=== PATIENT | male | born 2000 | race Caucasian/White ===

== ENCOUNTER 2019-07-04 18:40 | Inpatient (IN) ==
[2019-07-04] MEDS ORDERED: DiphenhydrAMINE HCL 50 MG/ML VIAL IV PRN (19:38)
[2019-07-04] MEDS ORDERED: HALOPERIDOL LACTATE 5 MG/ML 1 ML VIAL IM PRN (19:38)
[2019-07-04 19:41] LABS: Appearance Urine Clear (Clear); Bilirubin Urine Negative (Negative); Blood Urine Negative (Negative); Color Urine Dark Yellow; Glucose Urine UA Negative (Negative); Leukocyte Esterase Urine Negative (Negative); Nitrite Urine Negative (Negative); Protein Urine Negative (Negative); Specific Gravity Urine 1.027 (1.000-1.030); Urobilinogen Urine Negative (Negative)
[2019-07-04 19:45] LABS: Ketones Urine 3+ (Negative)
[2019-07-04 19:47] LABS: Basophils # (auto) 0.02 K/uL (0-0.2); Basophils % (auto) 0.2 %; Eosinophils # (auto) 0.08 K/uL (0-0.5); Eosinophils % (auto) 0.9 %; Hematocrit (blood only) 49.4 % (42-52); Hemoglobin 17.4 g/dL (14.0-18.0); Immature Granulocytes # (auto) 0.02 K/uL (0.00-0.02); Immature Granulocytes % (auto) 0.2 %; Lymphocytes # (auto) 1.86 K/uL (1.2-3.4); Lymphocytes % (auto) 21.5 %; Mean Corpuscular Hemoglobin 31.2 pg (25-34); Mean Corpuscular Hgb Conc 35.2 g/dL (32-36); Mean Corpuscular Volume 88.7 fL (80-100); Mean Platelet Volume 9.9 fL (7.4-10.4); Monocytes # (auto) 0.79 K/uL (0.11-0.59); Monocytes % (auto) 9.1 %; Neutrophils # (auto) 5.89 K/uL (1.4-6.5); Neutrophils % (auto) 68.1 %; Platelet Count 248 K/uL (130-400); RDW Coefficient of Variation 13.4 % (11.5-14.5); RDW Standard Deviation 43.7 fL (36.4-46.3); Red Blood Count 5.57 M/uL (4.7-6.1); White Blood Count 8.66 K/uL (4.8-10.8)
[2019-07-04 20:03] LABS: Albumin Level 4.8 gm/dl (3.4-5.0); BUN Creatinine Ratio 11.3 (10-20); Calcium 9.9 mg/dl (8.5-10.1); Creatinine Clr Calc Pharmacy 136.2 ml/min; Est GFR (Non-African American) 100.1; Potassium 3.5 mmol/L (3.5-5.1)
[2019-07-04 20:13] LABS: Albumin Globulin Ratio 1.2 (0.9-2); Bilirubin,Total 0.7 mg/dl (0.2-1); Thyroid Stimulating Hormone 0.718 uIu/ml (0.300-4.500); Total Protein 8.8 gm/dl (6.4-8.2)
[2019-07-04 20:16] LABS: Amphetamines+Metham, Urine Neg (Neg); Barbiturates, Urine Neg (Neg); Benzodiazepine, Urine Neg (Neg); Cocaine, Urine Neg (Neg); MDMA (Ecstacy), Urine Neg (Neg); Methadone, Urine Neg (Neg); Opiate, Urine Neg (Neg); Phencyclidine, Urine Neg (Neg)
[2019-07-04 20:18] LABS: Acetaminophen < 2 ug/ml (10-30); Salicylate < 1.7 mg/dl (2.8-20)
--- NOTE | 2019-07-04 22:50 | Emergency Department Note ---
Entered by Iva Dickerson acting as a scribe for Armando Neal MD History of Present Illness General Chief complaint: Mental Health Evaluation Stated complaint: MENTAL HEALTH EVAL Time Seen by Provider: 07/04/19 19:04 Source: patient History of Present Illness Onset (ago): year(s) (ongoing, worse in the last week ) Location: head (SI with multiple plans (not disclosed)) Severity: similar to prior episodes (SI since high school, worsening) Pain Consistency: + constant Relieved By: + none Associated symptoms: + loss of appetite (last full meal was 1 day ago, declines PO at this time ), + nausea/vomiting (last episode this morning) and + other (irregular sleeping patterns "sleeping too much or too little", abdominal pain) The patient is a 18 year old white male with a history of SI, depression, and anxiety who presents to the Emergency Room for a mental health evaluation. The patient states that he has been experiencing SI since he was in high school. He explains that he is "sick of dealing with everything" and that some days are better than others, however he admits he had a rough week. He reports that "no matter what he does, it is not decent enough" and that he does not believe things will get better. He presents to the ED for SI with multiple plans which he does not disclose. The patient states that he does not have access to guns but he does have a knife collection. However, he states "I am not crazy enough to use them". The patient admits that he tried to see a psychiatrist but was told that there is a 3 month wait period and that his insurance does not cover this type of help. He takes Lexapro daily with no relief. He is a sophomore at [employer] and is originally from [place], [place]. He does not follow with a counseling service back home. The patient also lives in a fraternity house at [facility] where he states that he feels safe. As far as drug use, he admits to recent LSD and marijuana use. He also smokes occasionally and drinks ETOH 1x/week. Additionally, he includes that his sleeping patterns are irregular "either sleeping too little or too much". The patient also adds that he has been experiencing loss of appetite and that his last full meal was 1 day ago. He does not wish to have any PO at this time. He states that he experienced recent nausea and vomiting with his last episode occurring this morning. The patient also reports recent abdominal pain. Of note, he states that school is the "only thing" going well for him. He is willing to do inpatient therapy and offers no further concerns at this time. Home Medications Home Medications Medication Instructions Recorded Confirmed Type escitalopram oxalate 20 mg PO QAM 03/23/19 07/04/19 History naproxen sodium [Aleve] 220 mg PO Q8H PRN 03/23/19 07/04/19 History Allergies Allergy/AdvReac Type Severity Reaction Status Date / Time amoxicillin Allergy Severe Hives Verified 07/04/19 19:52 Past Med/Surg History Medical History Anxiety Depression Suicidal ideations Surgical History No pertinent past surgical history Social History Preferred Language: Nauruan Communication Ability: Effective Rope Walker Required: No Beliefs That Will Affect Care: None ("I gave up on that") Feels Safe at Home: Yes Smoking Status: Current some day smoker Hx Alcohol Use: Yes Alcohol Intake Frequency: Weekly Hx Substance Use: Yes substance use type: marijuana and other Substance Use Type Other:: LSD Review of Systems See HPI for pertinent positives & negatives. and A total of 10 systems reviewed and were otherwise negative Physical Exam Vital Signs Vital Signs - 24 hr 07/04/19 19:00 07/05/19 00:09 Temperature 37.2 C Temperature Source Oral Pulse Rate 78 Pulse Rate [Finger] 89 Respiratory Rate 18 18 Respiratory Effort / Characteristics Non-Labored Respiratory Depth Normal Blood Pressure 153/89 H Blood Pressure [Right Arm] 115/64 Blood Pressure Mean 110 Blood Pressure Mean [Right Arm] 81 Blood Pressure Position [Right Arm] Sitting Pulse Oximetry 97 99 Oxygen Delivery Method Room Air Room Air Sepsis Recent Fever Within 48 Hours No Sepsis New/Unexplained Change in Mental Status No Sepsis Action Taken by Nursing No Action Required GENERAL: Depressed mood, well nourished, NAD, non-toxic. EYE EXAM: Normal conjunctiva. PERRL, no anisocoria and EOM's grossly intact w/o pain. OROPHARYNX: Moist mucus membranes. Grossly normal dentition. NECK: Supple, no nuchal rigidity, no adenopathy, non-tender. no signs of meningismus. LUNGS: Clear to auscultation. Normal chest wall mechanics. HEART: NSR, no MRG. ABDOMEN: Abdomen soft, non-tender, normo-active bowel sounds, no masses, no rebound or guarding. BACK: No CVA TTP. SKIN: No rashes and no bruising. UPPER EXTREMITIES: Upper extremities are grossly normal. LOWER EXTREMITIES: No pitting edema. No calf pain. NEURO EXAM: A&O x3, cranial nerves II-XII grossly intact, normal speech, moves all 4 extremities on command w/o issue. PSYCH: Depressed mood, flat affect, positive SI, no HI or AVH. Course Course 1913: Past medical records reviewed. The patient was evaluated in room A06. A complete history and physical exam was performed. 2324: I checked on the patient and updated him. 0046: The patient was admitted as an inpatient to [facility]. The patient verbally expressed understanding and agreement of the treatment plan. The patient will be evaluated for further treatment. Administered Medications Escitalopram Oxalate (Lexapro Tab) [facility] [place] Stop: 08/04/19 08:59 Last Admin: 07/05/19 08:59 Dose: 20 mg Documented by: [id number] Medical Decision Making Differential Diagnosis Differential diagnoses considered include mood disorder, infection, hypoglycemia, electrolyte abnormalities, cardiac sources, intracerebral event, toxicologic, neurologic, as well as others. Medical Records Attestation: I reviewed the patient's medical records. Home Medications Current Medication List: was personally reviewed by me Laboratory Data Attestation: I reviewed the patient's lab results. Result diagrams: 07/04/19 19:36 07/04/19 19:36 Lab Results 07/04/19 07/04/19 07/04/19 Range/Units 19:10 19:10 19:36 WBC 8.66 (4.8-10.8) K/uL RBC 5.57 (4.7-6.1) M/uL Hgb 17.4 (14.0-18.0) g/dL Hct 49.4 (42-52) % MCV 88.7 (80-100) fL MCH 31.2 (25-34) pg MCHC 35.2 (32-36) g/dL RDW Std Deviation 43.7 (36.4-46.3) fL RDW Coeff of Perla 13.4 (11.5-14.5) % Plt Count 248 (130-400) K/uL MPV 9.9 (7.4-10.4) fL Immature Gran % (Auto) 0.2 % Neut % (Auto) 68.1 % Lymph % (Auto) 21.5 % [place] % (Auto) 9.1 % Eos % (Auto) 0.9 % Baso % (Auto) 0.2 % Immature Gran # (Auto) 0.02 (0.00-0.02) K/uL Neut # (Auto) 5.89 (1.4-6.5) K/uL Lymph # (Auto) 1.86 (1.2-3.4) K/uL [place] # (Auto) 0.79 H (0.11-0.59) K/uL Eos # (Auto) 0.08 (0-0.5) K/uL Baso # (Auto) 0.02 (0-0.2) K/uL Sodium (136-145) mmol/L Potassium (3.5-5.1) mmol/L Chloride (98-107) mmol/L Carbon Dioxide (21-32) mmol/L Anion Gap (3-11) BUN (7-18) mg/dl Creatinine (0.6-1.4) mg/dl Est Cr Clr Drug Dosing ml/min Est GFR ( Amer) Est GFR (Non-Af Amer) BUN/Creatinine Ratio (10-20) Glucose (70-99) mg/dl Calcium (8.5-10.1) mg/dl Total Bilirubin (0.2-1) mg/dl AST (15-37) U/L ALT (12-78) U/L Alkaline Phosphatase (45-117) U/L Total Protein (6.4-8.2) gm/dl Albumin (3.4-5.0) gm/dl Globulin (2.5-4.0) gm/dl Albumin/Globulin Ratio (0.9-2) TSH (0.300-4.500) uIu/ml Urine Color Dark Yellow Urine Appearance Clear (Clear) Urine pH 5.0 (4.5-7.5) Ur Specific [place] 1.027 (1.000-1.030) Urine Protein Negative (Negative) Urine Glucose (UA) Negative (Negative) Urine Ketones 3+ H (Negative) Urine Blood Negative (Negative) Urine Nitrite Negative (Negative) Urine Bilirubin Negative (Negative) Urine Urobilinogen Negative (Negative) Ur Leukocyte Esterase Negative (Negative) Salicylates (2.8-20) mg/dl Urine Opiates Screen Neg (Neg) Ur Methadone, Qual Neg (Neg) Acetaminophen (10-30) ug/ml Urine Barbiturates Neg (Neg) Ur Phencyclidine (PCP) Neg (Neg) U Amphetamin/Meth Scrn Neg (Neg) MDMA (Ecstasy) Screen Neg (Neg) U Benzodiazepines Scrn Neg (Neg) Ur Cocaine Metabolite Neg (Neg) U Marijuana (THC) Screen Pos H (Neg) Ethyl Alcohol mg/dL (0-3) mg/dl 07/04/19 07/04/19 07/04/19 Range/Units 19:36 19:36 19:36 WBC (4.8-10.8) K/uL RBC (4.7-6.1) M/uL Hgb (14.0-18.0) g/dL Hct (42-52) % MCV (80-100) fL MCH (25-34) pg MCHC (32-36) g/dL RDW Std Deviation (36.4-46.3) fL RDW Coeff of Perla (11.5-14.5) % Plt Count (130-400) K/uL MPV (7.4-10.4) fL Immature Gran % (Auto) % Neut % (Auto) % Lymph % (Auto) % [place] % (Auto) % Eos % (Auto) % Baso % (Auto) % Immature Gran # (Auto) (0.00-0.02) K/uL Neut # (Auto) (1.4-6.5) K/uL Lymph # (Auto) (1.2-3.4) K/uL [place] # (Auto) (0.11-0.59) K/uL Eos # (Auto) (0-0.5) K/uL Baso # (Auto) (0-0.2) K/uL Sodium 136 (136-145) mmol/L Potassium 3.5 (3.5-5.1) mmol/L Chloride 103 (98-107) mmol/L Carbon Dioxide 25 (21-32) mmol/L Anion Gap 8.0 (3-11) BUN 12 (7-18) mg/dl Creatinine 1.07 (0.6-1.4) mg/dl Est Cr Clr Drug Dosing 136.2 ml/min Est GFR ( Amer) 116.0 Est GFR (Non-Af Amer) 100.1 BUN/Creatinine Ratio 11.3 (10-20) Glucose 97 (70-99) mg/dl Calcium 9.9 (8.5-10.1) mg/dl Total Bilirubin 0.7 (0.2-1) mg/dl AST 14 L (15-37) U/L ALT 18 (12-78) U/L Alkaline Phosphatase 65 (45-117) U/L Total Protein 8.8 H (6.4-8.2) gm/dl Albumin 4.8 (3.4-5.0) gm/dl Globulin 4.0 (2.5-4.0) gm/dl Albumin/Globulin Ratio 1.2 (0.9-2) TSH 0.718 (0.300-4.500) uIu/ml Urine Color Urine Appearance (Clear) Urine pH (4.5-7.5) Ur Specific [place] (1.000-1.030) Urine Protein (Negative) Urine Glucose (UA) (Negative) Urine Ketones (Negative) Urine Blood (Negative) Urine Nitrite (Negative) Urine Bilirubin (Negative) Urine Urobilinogen (Negative) Ur Leukocyte Esterase (Negative) Salicylates < 1.7 L (2.8-20) mg/dl Urine Opiates Screen (Neg) Ur Methadone, Qual (Neg) Acetaminophen < 2 L (10-30) ug/ml Urine Barbiturates (Neg) Ur Phencyclidine (PCP) (Neg) U Amphetamin/Meth Scrn (Neg) MDMA (Ecstasy) Screen (Neg) U Benzodiazepines Scrn (Neg) Ur Cocaine Metabolite (Neg) U Marijuana (THC) Screen (Neg) Ethyl Alcohol mg/dL < 3.0 (0-3) mg/dl Blood Pressure Blood Pressure Findings: Low blood pressure Blood Pressure Disposition: Referred to patients primary care provider MDM Narrative The patient is a 18 year old white male with a history of SI, depression, and anxiety who presents to the Emergency Room for a mental health evaluation Patient was seen and evaluated the bedside. The patient did present with concern for suicidal ideation and plan. The patient denies any AVH or HI. Patient states school is been going well but outside of that he has been having issues. Patient was seen and evaluated the psych briefcase sewer after being medically cleared. Patient was subsequently admitted to [facility]. Impression & Plan Depression with suicidal ideation, Drug use Discharge Plan Visit Data *Final* Discharge Date/Time: 07/05/19 00:54 Chief Complaint: Mental Health Evaluation Stated Complaint: MENTAL HEALTH EVAL ED Provider: Armando Neal Discharge Problem: Depression with suicidal ideation, Drug use Patient Disposition: Admitted As Inpatient Discharge Instructions Interventions: ED Discharge Assessment Last Done: 07/05/19 00:54 The scribe's documentation has been prepared under my direction and personally reviewed by me in its entirety. I confirm that the note above accurately reflects all work, treatment, procedures, and medical decision making performed by me.
[2019-07-05] MEDS ORDERED: ALUMINUM/MAGNESIUM SUSP 30 ML UDC PO PRN (01:53)
[2019-07-05] MEDS ORDERED: ACETAMINOPHEN 325 MG TAB PO PRN (01:53)
[2019-07-05] MEDS ORDERED: BISMUTH SUBSALICYLATE PER ML OMNICELL CHARGE PO PRN (01:53)
[2019-07-05] MEDS ORDERED: SODIUM CHLORIDE 0.65% NA SOLN 45 ML (OCEAN) PRN (01:53)
[2019-07-05] MEDS ORDERED: MAGNESIUM HYDROXIDE SUSP 30 ML UDC PO PRN (01:53)
--- NOTE | 2019-07-05 08:46 | History & Physical ---
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 [place] Urine Protein Urine Glucose (UA) Urine Ketones Urine Blood Urine Nitrite Urine Bilirubin Urine Urobilinogen Ur Leukocyte Esterase Salicylates < 1.7 L Urine Opiates Screen Ur Methadone, Qual Acetaminophen < 2 L Urine Barbiturates Ur Phencyclidine (PCP) U Amphetamin/Meth Scrn MDMA (Ecstasy) Screen U Benzodiazepines Scrn Ur Cocaine Metabolite U Marijuana (THC) Screen U Marijuana THC Carboxy Drug Screen Comment Ethyl Alcohol mg/dL 07/04/19 19:36 WBC RBC Hgb Hct MCV MCH MCHC RDW Std Deviation RDW Coeff of Perla Plt Count MPV Immature Gran % (Auto) Neut % (Auto) Lymph % (Auto) [place] % (Auto) Eos % (Auto) Baso % (Auto) Immature Gran # (Auto) Neut # (Auto) Lymph # (Auto) [place] # (Auto) Eos # (Auto) Baso # (Auto) Sodium Potassium Chloride Carbon Dioxide Anion Gap BUN Creatinine Est Cr Clr Drug Dosing Est GFR ( Amer) Est GFR (Non-Af Amer) BUN/Creatinine Ratio Glucose Calcium Total Bilirubin AST ALT Alkaline Phosphatase Total Protein Albumin Globulin Albumin/Globulin Ratio TSH Urine Color Urine Appearance Urine pH Ur Specific [place] Urine Protein Urine Glucose (UA) Urine Ketones Urine Blood Urine Nitrite Urine Bilirubin Urine Urobilinogen Ur Leukocyte Esterase Salicylates Urine Opiates Screen Ur Methadone, Qual Acetaminophen Urine Barbiturates Ur Phencyclidine (PCP) U Amphetamin/Meth Scrn MDMA (Ecstasy) Screen U Benzodiazepines Scrn Ur Cocaine Metabolite U Marijuana (THC) Screen U Marijuana THC Carboxy Drug Screen Comment Ethyl Alcohol mg/dL < 3.0 Current Inpatient Medications Current Inpatient Medications: Current Inpatient Medications Acetaminophen (Tylenol) 650 mg PO Q4H PRN PRN Reason: Headache or Minor Fever Stop: 08/04/19 01:52 Al Hydrox/Mg Hydrox/Simethicone (Maalox) 30 ml PO Q4H PRN PRN Reason: GI Upset Stop: 08/04/19 01:52 Bismuth Subsalicylate (Kaopectate) 15 ml PO PRN PRN PRN Reason: Loose Stool Stop: 08/04/19 01:52 Escitalopram Oxalate (Lexapro Tab) 20 mg PO QAM [facility] Stop: 08/04/19 08:59 Hydroxyzine HCl (Vistaril) 50 mg PO HSZ PRN PRN Reason: Insomnia Stop: 08/04/19 01:52 Hydroxyzine HCl (Vistaril) 25 mg PO Q4H PRN PRN Reason: Anxiety Stop: 08/04/19 01:52 Magnesium Hydroxide (Milk Of Magnesia) 30 ml PO DAILY PRN PRN Reason: Constipation Stop: 08/04/19 01:52 Sodium Chloride ([place] Nasal) 1 - 2 sprays NA PRN PRN PRN Reason: Nasal Dryness/Congestion Stop: 08/04/19 01:52
[2019-07-05] MEDS ORDERED: ESCITALOPRAM OXALATE 20 MG TAB PO SCH (09:00)
[2019-07-06] MEDS ORDERED: ESCITALOPRAM OXALATE 10 MG TAB PO SCH (09:00)
[2019-07-06] MEDS ORDERED: SERTRALINE HCL 50 MG TABLET PO SCH (09:00)
--- NOTE | 2019-07-06 13:14 | Psychiatric Progress Note ---
Date of Service July 06, 2019 Impression / Recommendations Impression 18-year-old male admitted voluntarily for inpatient psychiatric treatment on 07/05/2019 after being referred to the ED by [facility] for a mental health evaluation. No available records from [facility] to review at this time, they have been requested. Pt states he began a search for outpatient therapy, but between long wait lists and insurance coverage concerns he was not able to be seen at [facility] where he had requested care. Pt states he has chronic SI, and was feeling "miserable" so decided to get help at [facility]. [facility] referred to the ED for further evaluation and inpatient psychiatric treatment was recommended. Pt verbalize willingness for inpatient treatment, though admits he is now angry and frustrated as he has yet to get help (this being only hours after his admission). He does demonstrate distorted thinking and emotional reactivity suggestive of possible underlying personality disorder (specifically borderline personality disorder traits, r/o possible narcissistic and antisocial traits), though he is not presently in a state to be able to productively review this criteria further. Will use working diagnoses of major depressive disorder and generalized anxiety disorder while attempting to gather collateral information from parents about patient's history of symptoms. Pt was agreeable with cross- taper from escitalopram to sertraline after reviewing risks, benefits, and potential side effects. Aside from these medication adjustments, patient will be encouraged to participate in group and recreational programming. Staff will assist patient in development of healthy and effective coping strategies. Family meeting with parents scheduled for this afternoon to discuss outpatient stressors, and review safety and discharge planning. Pt will require referrals for outpatient therapy and psychiatric medication management prior to discharge. Pt continues to verbalize suicidal ideation and poor coping skills. He remains at high risk of suicide if he is discharged prematurely, therefore inpatient psychiatric treatment remains medically necessary. (1) Suicidal ideations: 07/05 - Admitted to a locked inpatient behavioral health unit, on q15 minute safety checks - Encourage medication initiation/adjustments as indicated - Encourage participation in group and recreational therapies - Gather collateral information from outpatient providers - Suggest family meeting to involve outpatient supports in safety planning - Arrange appropriate aftercare 07/06 - Pt does endorse ongoing SI, stating he continues "this would be a lot easier if I didn't have to go though it" - admitting that these thoughts lead to specific thoughts to end his life - Family meeting today to discuss safety and discharge planning (2) Depression: 07/05 - Will use working diagnosis of major depressive disorder. Differential includes: dysthymic disorder, adjustment disorder, cannabis-induced mood disord er, bipolar disorder, and underlying personality disorder. - Pt agreeable with cross-taper from escitalopram to sertraline - as he has felt escitalopram to be less effective over the past several months. Risks, benefits, and potential side effects of the medication change were discussed. Pt verbalized understanding and is agreeable with initiation of sertraline. Will provide 10mg of escitalopram and 50mg of sertraline for tomorrow morning - as he has already received 20mg of escitalopram this morning. - Encourage attendance of group and recreational programming in order to develop healthy and effective coping strategies - Refer for outpatient therapy and psychiatric medication management - Family meeting with parents to discuss safety and discharge planning 07/06 - Discontinue escitalopram and titrate sertraline to 100mg tomorrow - patient agreeable with plan and is denying side effects - Continue to encourage group and recreational programming - Family meeting with parents is scheduled for this afternoon - Continue referrals for outpatient psychiatric treatment (3) Anxiety: 07/05 - Symptoms of anxiety seem to be consistent with a diagnosis of generalized anxiety disorder, with reported panic attacks - Cross-taper from escitalopram to sertraline as discussed above - Hydroxyzine available prn for acute anxiety - Encourage development of healthy and effective coping strategies in group therapy 07/06 - Switching SSRIs as above - will d/c escitalopram and titrate sertraline to 100mg for tomorrow - Continue prn hydroxyzine - Pt has been participating more openly in group programming (4) Personality disorder: 07/05 - Rule out underlying personality disorder. Pt does demonstrate characteristics of borderline personality disorder (affective instability, inappropriate/intense anger, chronic SI/emptiness, regular suspiciousness of others, and instability within relationships). Evaluate further for possible narcissistic and antisocial traits as well. Family history of chaos with interpersonal relationships, sister with reported borderline personality disorder. - Encourage processing of these thoughts and emotions while maintaining appropriate boundaries - Recommending consistent outpatient CBT, ideally ability to explore DBT as well (5) Cannabis abuse: -Brief intervention was offered and accepted Intervention was greater than 5 min in length. Brief interventions include: 1. Assess Readiness to Quit, 2. Advise: Help Patient to Reduce or Abstain from Alcohol and other abusable substances, 3. Agree: Set Specific, Feasible Goals, 4. Assist: Anticipate barriers, Problem- Solving Solutions. Social work to 5. Arrange: Referrals to appropriate treatment. Summary of intervention: The patient is in precontemplation stage with regards to transtheoretical model of change. The patient is advised to decrease alcohol consumption and substance use due to depressant and mood altering effects and risk of interactions with prescription medications. The patient was advised of recommendations for abstinence from alcohol and other abusable substances and to attend substance abuse treatment at discharge, and will be provided with recovery materials to continue to education self on how to cope with their cond ition without drinking and marijuana use. Risk Factors Assessment Male: Yes : Yes Do You Have Access To A Gun?: No Health Problems: No Mental Health Diagnoses: Yes Substance Use Disorders: Yes Previous Attempt: No Previous Psychiatric Hospitalization: No Hopelessness: Yes Protective Factors Assessment Adventism Beliefs: No : No Responsible for Young Children: No Employed: No Interval History Identifying Information JOSE SOLIS is a 18-year-old male who reported history of anxiety and depression. He reported a failed attempt to secure outpatient psychiatric treatment and therefore presented to [facility] with depressed mood, increased anxiety, and SI with numerous plans. Pt was referred to the ED for mental health evaluation and was admitted on 07/05/19 00:25 on a 201 voluntary commitment. Chief Complaint "I am definitely not looking forward to this meeting with my parents." Review of Systems Notes Constitutional: reports improved sleep last evening Cardiovascular: denied Respiratory: denied Gastrointestinal: denied Neurological: reports mild clouding of thought (states he experienced this when starting escitalopram as well) Psychiatric: denies symptoms other than stated above Total of at least 10 systems reviewed, pertinent positives as above and in HPI. Sleep Information Total Hours of Sleep: 5.75 Sleep Comments: pt given vistaril x2 per rn. pt on q-15 minute checks Meal Information Percent Meal Consumed - Breakfast: 100 Percent Meal Consumed - Lunch: 75 Percent Meal Consumed - Dinner: 90 Subjective Subjective Patient was seen & assessed and interval progress reviewed with nursing and social work. Staff reports the patient continues to verbalize suicidal ideation. He had limited group attendance throughout the day yesterday. He is scheduled for a family meeting with his parents this afternoon. Patient was seen today to assess progress since admission. He does admit that he is "not looking forward to this family meeting with my parents." Despite verbalizing his apprehension, he demonstrates that he has taken steps to prepare for this meeting. He shows this provider a journal he has been keeping, was pages specifically related to thoughts he wants to share with his parents regarding their family dynamic. Some of the patient's points are related to his struggles personally with his mental health, though some other bullet points are related to how they as a family approach conflict between them. Patient admits that he feels comfortable sharing this "they can certainly read it, if they even want to." Patient states that he has been doing some other journaling as well as it relates to various thoughts he has had during his treatment. Patient actually shares with this provider that he used to be rather interested in poetry, and his recent journaling has been inspiring him to return to this. We discussed that there are numerous coping strategies available to individual; however, he will simply need to find which specific ones are beneficial for him. Patient does indicate that he continues to experience suicidal ideation. He states specifically that he is having thoughts of "it would be a lot easier if I did not have to go through this." Patient was asked what thoughts come after the statements, and he responds by saying "the thoughts about being ." Patient verbalizes he is agreeable with continued medication adjustments to discontinue escitalopram and titrate sertraline to 100 mg starting tomorrow morning. He remains agreeable with referrals for outpatient therapy and psychiatric med ication management. He states that he has been feeling more so that group programming and individual counseling sessions have been having some benefit for him. Patient continues to verbalize that his biggest fear is "having gone through all this, and still not feeling better." Patient does engage in appropriate and insightful conversation as we discussed consideration for diagnoses and specific treatment be contributing to symptoms. We reviewed that the numerous factors that contribute to these symptoms (stressors, upbringing, environmental experiences, neurotransmitter functioning, and the influence of various personality types). Patient denies other needs or concerns at this time, but admits he is more hopeful that there might be some benefit to his psychiatric hospitalization after all. Physical Exam Psychiatric Orientation: alert, oriented x 3 and cooperative (Significantly more pleasant d uring today's interaction) Apperance: appropriately dressed, appropriately groomed and appeared stated age Eye Contact: good eye contact Motor Behavior: steady gait and station and no abnormal motor movements Speech: normal rate/rhythm/volume of speech Affect: + blunted affect (Subdued, not appearing overtly depressed); no anxious affect and no irritable affect Mood: + anxious mood Thought Process: goal directed thought process, clear/coherent thought process and thought association intact Thought Content: + cognitive distortions (Regarding his self worth and anticipated benefits of treatment), + hopelessness and + self deprecation; no worthlessness Suicidal Thoughts: denies suicidal intent; + reports suicidal thoughts Homicidal Thoughts: denies homicidal thoughts Hallucinations: no auditory hallucinations and no visual hallucinations Cognition: attention grossly intact and language grossly intact Insight: + limited insight Judgement: + fair judgement Vital Signs (Past 24 Hours) Last Vital Signs Temp 36.4 C L 07/06/19 06:37 Pulse 76 07/06/19 06:38 Resp 18 07/06/19 06:37 BP 130/70 07/06/19 06:38 Pulse Ox 99 07/05/19 00:09 Results & Data ([facility]) Current Inpatient Medications Current Inpatient Medications: Current Inpatient Medications Acetaminophen (Tylenol) 650 mg PO Q4H PRN PRN Reason: Headache or Minor Fever Stop: 08/04/19 01:52 Al Hydrox/Mg Hydrox/Simethicone (Maalox) 30 ml PO Q4H PRN PRN Reason: GI Upset Stop: 08/04/19 01:52 Bismuth Subsalicylate (Kaopectate) 15 ml PO PRN PRN PRN Reason: Loose Stool Stop: 08/04/19 01:52 Escitalopram Oxalate (Lexapro Tab) 10 mg PO QAM [facility] Stop: 08/05/19 08:59 Last Admin: 07/06/19 10:46 Dose: 10 mg Documented by: Hydroxyzine HCl (Vistaril) 50 mg PO HSZ PRN PRN Reason: Insomnia Stop: 08/04/19 01:52 Last Admin: 07/05/19 23:46 Dose: 50 mg Documented by: Hydroxyzine HCl (Vistaril) 25 mg PO Q4H PRN PRN Reason: Anxiety Stop: 08/04/19 01:52 Magnesium Hydroxide (Milk Of Magnesia) 30 ml PO DAILY PRN PRN Reason: Constipation Stop: 08/04/19 01:52 Sertraline HCl (Zoloft) 50 mg PO QAM [facility] Stop: 08/05/19 08:59 Last Admin: 07/06/19 10:46 Dose: 50 mg Documented by: Sodium Chloride ([place] Nasal) 1 - 2 sprays NA PRN PRN PRN Reason: Nasal Dryness/Congestion Stop: 08/04/19 01:52 Mental Health & Subst Abuse Tx Therapist Name of Therapist: Tami at [facility] Director Of Financial Planning Name of Director Of Financial Planning: Susan Peterson at [facility] Post Discharge Appointments Primary Care Physician Name Of Family Doctor: TERE (1) Depression Active/Remission status: currently active Depression Type: major depressive disorder Major depression episode severity: severe Major depression recurrence: recurrent Psychotic features: without psychotic features Qualified Code(s): F33.2 - Major depressive disorder, recurrent severe without psychotic features
[2019-07-06 22:04] LABS: Marijuana Quant, GCMS Urine 197 ng/mL (<5)
[2019-07-07] MEDS ORDERED: SERTRALINE HCL 100 MG TABLET PO SCH (09:00)
--- NOTE | 2019-07-07 12:05 | Psychiatric Progress Note ---
Date of Service July 07, 2019 Impression / Recommendations Impression 18-year-old male admitted voluntarily for inpatient psychiatric treatment on 07/05/2019 after being referred to the ED by [facility] for a mental health evaluation. The patient acknowledges that he was having active suicidal thoughts. He notes that these thoughts are chronic, but that he has never acted on them. He also says that he has never had full-blown suicidal "intent" but acknowledges that, on several occasions, including recently, he has "come close." He has trouble saying what he means by "coming close," but, in any event, today says that he is not having any thoughts of acting on his suicidal thoughts, although he does note, "as usual, I am still having them." He attempts to engage in an existential discussion of the meaning of life, and whether transient pleasures amount anything if, in the end, is the outcome, and seems to find relief and intellectualization. It will be important to help the patient breakthrough intellectualization and avoid entering into "meaning of life debates" with the patient. We are in the process of titrating sertraline, currently at 100 mg daily. The patient notes no side effects from sertraline and the dose of sertraline will be titrated to a dose of 150 mg daily starting tomorrow. (1) Suicidal ideations: 07/05 - Admitted to a locked inpatient behavioral health unit, on q15 minute safety checks - Encourage medication initiation/adjustments as indicated - Encourage participation in group and recreational therapies - Gather collateral information from outpatient providers - Suggest family meeting to involve outpatient supports in safety planning - Arrange appropriate aftercare 07/06 - Pt does endorse ongoing SI, stating he continues "this would be a lot easier if I didn't have to go though it" - admitting that these thoughts lead to specific thoughts to end his life - Family meeting today to discuss safety and discharge planning 07/07 -The patient reports fleeting, passive thoughts of suicide without any active plan or intent. He says that his mood is improved and he feels that he has learned several coping strategies here in the hospital. -At the same time, when asked to describe a safety plan that he might employ in the community should he develop suicidal plan and intent, he stumbles and says, "I do not want to lay that kind of thing on friends and family." Reprocess this, and looked at the fact that his suicide would definitely be "laying" something on his friends and family, and that I felt certain that his friends and family would be eager to help him in those instances. He then discussed the option of informing his girlfriend ("since she already knows that I have suicidal thoughts. She has visited me here.") And, probably before contacting his girlfriend he says that he would contact his mother as a way of preventing suicidal action. -Patient tells me that there are guns in his family home, but these are locked in a cabinet and, primarily because of the patient's sisters behaviors, their father has hidden the alarcon to the gun cabinet and although the patient does look forward (reportedly out of curiosity, but not out of a plan to shoot himself) he has never been able to find it. (2) Depression: 07/05 - Will use working diagnosis of major depressive disorder. Differential includes: dysthymic disorder, adjustment disorder, cannabis-induced mood disorder, bipolar disorder, and underlying personality disorder. - Pt agreeable with cross-taper from escitalopram to sertraline - as he has felt escitalopram to be less effective over the past several months. Risks, benefits, and potential side effects of the medication change were discussed. Pt verbalized understanding and is agreeable with initiation of sertraline. Will provide 10mg of escitalopram and 50mg of sertraline for tomorrow morning - as he has already received 20mg of escitalopram this morning. - Encourage attendance of group and recreational programming in order to develop healthy and effective coping strategies - Refer for outpatient therapy and psychiatric medication management - Family meeting with parents to discuss safety and discharge planning 07/06 - Discontinue escitalopram and titrate sertraline to 100mg tomorrow - patient agreeable with plan and is denying side effects - Continue to encourage group and recreational programming - Family meeting with parents is scheduled for this afternoon - Continue referrals for outpatient psychiatric treatment 07/07 -We are continuing discharge planning. -Patient indicates that he is tolerating sertraline 100 mg daily well and we will increase the dose to 150 mg starting tomorrow. (3) Anxiety: 07/05 - Symptoms of anxiety seem to be consistent with a diagnosis of generalized anxiety disorder, with reported panic attacks - Cross-taper from escitalopram to sertraline as discussed above - Hydroxyzine available prn for acute anxiety - Encourage development of healthy and effective coping strategies in group therapy 07/06 - Switching SSRIs as above - will d/c escitalopram and titrate sertraline to 100mg for tomorrow - Continue prn hydroxyzine - Pt has been participating more openly in group programming 07/07 -Today the patient reports that his anxiety has lessened, and he indicates that participation in various group programming has helped him develop certain skills that have helped him "learn to relax." (4) Personality disorder: 07/05 - Rule out underlying personality disorder. Pt does demonstrate characteristics of borderline personality disorder (affective instability, inappropriate/intense anger, chronic SI/emptiness, regular suspiciousness of others, and instability within relationships). Evaluate further for possible narcissistic and antisocial traits as well. Family history of chaos with interpersonal relationships, sister with reported borderline personality disorder. - Encourage processing of these thoughts and emotions while maintaining appropriate boundaries - Recommending consistent outpatient CBT, ideally ability to explore DBT as well 07/07 -The patient does present with certain pathologic characterologic traits, but it is not clear that these traits arise to the level of an actual personality disorder. (5) Cannabis abuse: -Brief intervention was offered and accepted Intervention was greater than 5 min in length. Brief interventions include: 1. Assess Readiness to Quit, 2. Advise: Help Patient to Reduce or Abstain from Alcohol and other abusable substances, 3. Agree: Set Specific, Feasible Goals, 4. Assist: Anticipate barriers, Problem- Solving Solutions. Social work to 5. Arrange: Referrals to appropriate treatment. Summary of intervention: The patient is in precontemplation stage with regards to transtheoretical model of change. The patient is advised to decrease alcohol consumption and substance use due to depressant and mood altering effects and risk of interactions with prescription medications. The patient was advised of recommendations for abstinence from alcohol and other abusable substances and to attend substance abuse treatment at discharge, and will be provided with recovery materials to continue to education self on how to cope with their c ondition without drinking and marijuana use. 07/07 -Today, the patient tells me that he is not a "regular" user of marijuana, shortly after having told me that he uses marijuana, often throughout the day, on a daily basis. (He was able to recognize that the nonsensical nature of that statement, once it was pointed out to him.) He says that he smokes at least 3 "bowls" of marijuana on a daily basis, and sometimes more. He uses a "bong" primarily. The patient notes that, lately, he has not been experiencing much pleasure relief from marijuana and notes that he had stopped using it approxi mately 5 days prior to the admission. Risk Factors Assessment Male: Yes : Yes Do You Have Access To A Gun?: No Health Problems: No Mental Health Diagnoses: Yes Substance Use Disorders: Yes Previous Attempt: No Previous Psychiatric Hospitalization: No Hopelessness: Yes Protective Factors Assessment Synagogue Beliefs: No : No Responsible for Young Children: No Employed: No Interval History Identifying Information JOSE SOLIS is a 18-year-old male who reported history of anxiety and depression. He reported a failed attempt to secure outpatient psychiatric treatment and therefore presented to [facility] with depressed mood, increased anxiety, and SI with numerous plans. Pt was referred to the ED for mental health evaluation and was admitted on 07/05/19 00:25 on a 201 voluntary commitment. Chief Complaint "Depression and Suicidal Thoughts". Review of Systems Sleep Information Total Hours of Sleep: 5.75 Sleep Comments: pt given vistaril x2 per rn. pt on q-15 minute checks Meal Information Percent Meal Consumed - Breakfast: 100 Percent Meal Consumed - Lunch: 90 Percent Meal Consumed - Dinner: 100 Subjective Subjective Patient was seen & assessed and interval progress reviewed with treatment team. I met individually with the patient in order to assess his current mental status, evaluate his response to treatment, coordinate any necessary changes in the patient's treatment regimen with the patient, and address issues and concerns that may arise. The patient begins by telling me that he has had recurrent thoughts of suicide for much of the past for 5 years, but identifies no particular single precipitating issuealthough then chronic recurrent depression, and a general feeling of hopelessness about the future. He also cites various psychosocial stressors from childhood, primarily related to an old er sister who has been variously diagnosed with borderline personality disorder, dissociative identity disorder, and bipolar disorder. The patient says that his suicidal ruminations include thoughts of committing suicide through multiple means, and he says that the thoughts "run the gamut." These have included thoughts of shooting himself, jumping from a height, medication overdose, hanging, and other thoughts. At the same time, he says that he has not acted on these thoughts. However, he became concerned because thoughts have become more pronounced and intrusive recently, and that, in addition, he has been feeling more depressed recently. 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 He reports that he has a number of interests, number of friends, a girlfriend, and a fairly close relationship with his parents, but often feels that "life just is not worth living" and that the future and does not hold any form of sustained happiness. Reported symptoms of depression include depressed mood, crying spells, apathy, anhedonia, anergia, and suicidal ruminations. Today, he tells me that he feels his condition has improved significantly since entering the hospital, although he acknowledges that he is still having suicidal ruminationsalbeit without any active plan or intent. Physical Exam Psychiatric Orientation: alert, oriented x 3 and cooperative Apperance: appropriately dressed and appropriately groomed Eye Contact: good eye contact Motor Behavior: no abnormal motor movements Speech: normal rate/rhythm/volume of speech Affect: euthymic affect "Better." When I commented that his affect is not particularly depressed currently, he said, "well, I am not depressed every second of every day." Thought Process: goal directed thought process and linear/logical thought process Thought Content: reality based without delusions Patient appears to enjoy engaging in debates and appears to use intellectualization as a coping strategy. Patient acknowledges suicidal thoughts today, but says that these have lessened considerably and that he is not currently experiencing any suicidal Homicidal Thoughts: denies homicidal thoughts Hallucinations: no auditory hallucinations Cognition: recent memory grossly intact, remote memory grossly intact and attention grossly intact Estimated Intelligence: + above average estimated intelligence Insight: + fair insight Judgement: + fair judgement Vital Signs (Past 24 Hours) Last Vital Signs Temp 36.6 C 07/07/19 06:00 Pulse 61 07/07/19 06:40 Resp 16 07/07/19 06:00 BP 96/56 L 07/07/19 06:40 Pulse Ox 99 07/05/19 00:09 Results & Data ([facility]) Laboratory Results Laboratory Results - last 24 hr 07/04/19 19:10 U Marijuana THC Carboxy 197 H Drug Screen Comment SEE NOTE Current Inpatient Medications Current Inpatient Medications: Current Inpatient Medications Acetaminophen (Tylenol) 650 mg PO Q4H PRN PRN Reason: Headache or Minor Fever Stop: 08/04/19 01:52 Al Hydrox/Mg Hydrox/Simethicone (Maalox) 30 ml PO Q4H PRN PRN Reason: GI Upset Stop: 08/04/19 01:52 Bismuth Subsalicylate (Kaopectate) 15 ml PO PRN PRN PRN Reason: Loose Stool Stop: 08/04/19 01:52 Hydroxyzine HCl (Vistaril) 50 mg PO HSZ PRN PRN Reason: Insomnia Stop: 08/04/19 01:52 Last Admin: 07/06/19 23:21 Dose: 50 mg Documented by: Hydroxyzine HCl (Vistaril) 25 mg PO Q4H PRN PRN Reason: Anxiety Stop: 08/04/19 01:52 Magnesium Hydroxide (Milk Of Magnesia) 30 ml PO DAILY PRN PRN Reason: Constipation Stop: 08/04/19 01:52 Sertraline HCl (Zoloft) 100 mg PO QAM TANGELA Stop: 08/06/19 08:59 Last Admin: 07/07/19 08:44 Dose: 100 mg Documented by: Sodium Chloride ([place] Nasal) 1 - 2 sprays NA PRN PRN PRN Reason: Nasal Dryness/Congestion Stop: 08/04/19 01:52 Mental Health & Subst Abuse Tx Psychiatrist Name of Psychiatrist: Rafaela Trevino Psychiatrist's Date of Appointment with Psychiatrist: 08/08/19 Time of Appointment with Psychiatrist: 1:00 pm Psychiatric Appointment Comment: [facility] [place], [place] Therapist Name of Therapist: Tami ortiz [facility] Wrapper Stripper Name of Wrapper Stripper: Student [facility] - [facility] Phone Number for Wrapper Stripper: [phone] Date of Appointment with Wrapper Stripper: 07/13/19 Time of Appointment with Wrapper Stripper: 10:00 a.m. Case Management Appointment Comment: [address] [facility] Post Discharge Appointments Primary Care Physician Name Of Family Doctor: [facility] Primary Care Provider Appointment Comment: [place] [address] Contact Information Discharge Discharge Address: [address] [place] [address], [place] [address] (1) Depression Depression Type: major depressive disorder Major depression recurrence: recurrent Active/Remission status: currently active Major depression episode severity: severe Psychotic features: without psychotic features Qualified Code(s): F33.2 - Major depressive disorder, recurrent severe without psychotic f eatures
[2019-07-08] MEDS ORDERED: SERTRALINE HCL 50 MG TABLET PO SCH (09:00)
--- NOTE | 2019-07-08 09:32 | Discharge Summary ---
Date of Service July 08, 2019 History of Present Illness Michael Mckeon is a 18-year-old male admitted voluntarily for inpatient psychiatric treatment upon referral from [facility]. He states that he was seen for an urgent visit, and mental health evaluation in the ER was suggested. Patient indicates a history of anxiety and depression, for which she is prescribed escitalopram by his PCP. Patient states that he had been attempting to establish care at the [facility], but was met with barriers of wait lists and insurance issues. Patient presented to the ED with reported suicidal ideation with numerous plans. Patient did indicate access to a knife collection, though stated he did not have access to guns. It is reported that he made various provocative statements that he could overdose, shoot himself, or wreck a car. Inpatient psychiatric treatment was recommended, and patient was admitted voluntarily. Patient was seen for psychiatric evaluation, providing verbal consent to allow Meredith Parekh PA-C to observe today's encounter. Patient presents as frustrated and angry, openly admitting "I'm pretty pissed." Patient states that he called [facility] and came to the emergency room in an attempt to "get help, and what is being here doing for me?" This provider reassured the patient that he is allowed to be frustrated, but was reminded of treatment expectations and that outpatient "help" may take several days to arrange. Pt continued to verbalize anger about being "stripped of my belongings" and put in a "glorified mcc." Pt replies to questions with sarcastic responses, such as "you tell me" or "how am I supposed to answer that?" Eventually, patient was able to provide cherie nye h an appropriate response regarding his need for treatment. Patient stated "I guess I am not good at dealing with stress." When asked what outpatient issues the patient believes are contributing to this difficulty, the patient states "well, I'm not going to be all dramatic, people have it so much worse than me." After much encouragement, patient was able to verbalize a timeline of his psychiatric history. Patient believes he is struggled with depression and anxiety "all my life, probably." He states that these symptoms seem to worsen his [employer] year of high school; however, as a high achieving student and athlete he was able to cope with stress more productively. Patient openly admits that his ability to manage his mental health symptoms declined significantly as he was transitioning to the college setting. Patient states "first of all, [employer] wasn't my first choice." He also states that "no one told me I shouldn't take 22.5 credits my first semester, while also doing the [employer] essentially for free." Patient states that he met a female his freshman year, describing her as "the first significant person that I had ever loved, it took a long time to get over that break-up." Patient states that he did have some academic difficulty related to the situational stressors, and felt "miserable" his freshman year of college. Patient states that he was initiated on an an tidepressant medication (escitalopram) the summer and did notice some initial benefit. Pt does feel the medication was less effective after several months. 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 Patient states that he withdrew from the semester, returning to school this spring to continue his course work. Patient states "I cannot ever catch a break. Being at home is miserable, but being at school is miserable to. It is not like I can just quit and go home and have everything be better." Patient states that most recently he has been frustrated that his attempts to "get help" have not been effective. Patient states he also sought assistance from the office for students with disabilities, claiming he gave the appropriate paperwork but that no one had followed up with ways for him to obtain recommended accommodations. Patient states that he has been dating his current girlfriend since the beginning of March 2019, claiming she is "the best thing to ever happen to me, but I know even that will not last." Patient reports depressive symptoms of chronically low mood, difficulty falling and remaining asleep, decreased appetite, isolative behavior, difficulty with focus and concentration, limited motivation, anhedonia, and increase in negative thoughts. Patient admits that he feels as though he is a burden on his supports. Patient endorses chronic suicidality, claiming "I have been thinking of killing myself for YEARS, everyday! If it wasn't for hurting people I loved, I'd be gone. Off the map." Patient has difficulty directly answering this provider's questions regarding plan, means, and intent. Instead, patient verbalizes numerous considerations that he has had for ending his life and provocatively states "it be so easy, if I decided I wanted to do it no one could stop me." While patient does not openly admit to researching successful suicide plans, he does admit to considerations to overdose - "jump from a high building, my heart would explode before I hit the ground. I'd be instantly" - "I kno w if you puncture your lungs and walk into water, you are guaranteed to drown." Patient states that he does not have open access to firearms, but does verbalize "they would be so easy to get." Patient states he also has access to his knife collection, but would not be open to the pain associated with "cutting the whole way up my arm." Patient also endorses symptoms of anxiety, verbalizing racing thoughts, difficulty, concentrating, and decreased appetite. He does endorse episodes of panic attacks, occurring roughly once a week. Patient states "I cannot stop moving, my heart beats faster, I have racing thoughts. I usually clean excessively, because that is the only thing that calms me down." Patient does endorse a rather chaotic home situation, stating his sister has struggled with severe mental health conditions, requiring over 10 inpatient psychiatric hospitalizations. Patient states that his most traumatic memories are related to episodes in which her instability has had a larger affect on their family unit. While patient identifies his parents as supports, he feels as though they are frequently arguing and that "my parents have been through so much more s than I could ever imagine, they just keep telling me things will get better." Patient states that he "excelled" in high school, and was often praised for this, frequently being told it would benefit him in the long run. Pt states, "no matter how much I work, none of it pays off. Ever since I came to college, I cannot catch a break." Pt denies HI, SIB, A/V hallucinations, paranoia, guru/hypomania, other symptoms more suggestive of a bipolar presentation, OCD, PTSD, eating disorder, and other specific psychiatric symptoms. Physical Exam Psychiatric Orientation: alert, oriented x 3 and cooperative Apperance: appropriately dressed, appropriately groomed and appeared stated age Eye Contact: good eye contact Motor Behavior: steady gait and station and no abnormal motor movements Speech: normal rate/rhythm/volume of speech Affect: euthymic affect and mood congruent with affect "Much better." Thought Process: goal directed thought process and linear/logical thought process Thought Content: + cognitive distortions (Able to identify some of his cognitive distortions and challenge them.) and reality based without delusions Suicidal Thoughts: denies suicidal thoughts Homicidal Thoughts: denies homicidal thoughts Hallucinations: no auditory hallucinations and no visual hallucinations Cognition: recent memory grossly intact, attention grossly intact and language grossly intact Estimated Intelligence: consistent with education level Insight: + fair insight Judgement: + fair judgement Vital Signs (Past 24 Hours) Last Vital Signs Temp 36.3 C L 07/08/19 06:00 Pulse 73 07/08/19 06:30 Resp 16 07/08/19 06:00 BP 148/63 H 07/08/19 06:30 Pulse Ox 99 07/05/19 00:09 Principal Diagnosis Major depressive disorder, single episode, severe without psychosis Psychiatric Data The patient was hospitalized for 3 days. He was cross tapered from escitalopram to sertraline, which was titrated to 150 mg daily and was well tolerated. He was initially angry, but throughout the course of his hospitalization, was able to process this and became more cooperative and engaged in treatment. Psychoeducation was provided about his diagnoses and the recommendations to abstain from substance use. He had visits from his parents, and a family meeting was scheduled with them, which he was apprehensive about. He was able to use journaling to organize his thoughts and outlined what he wanted to discuss in the meeting, including his mental health struggles and certain family dynamics and the way they approach conflict. He was able to explore different coping strategies, and stated groups and individual counseling was benefiting him. He was also able to explore and process his chronic suicidal thoughts, which typically manifest as thoughts that "life is just not worth living" and that the future does not hold any form of sustained happiness. Despite this, he was also able to identify numerous positive aspects to his life, including that he has a number of interests, friends, a girlfriend, and a good relationship with his parents. Although he continued to endorse occasional suicidal thoughts throughout his hospitalization, they decreased in intensity and frequency, and he no longer felt that he may act on them. He had a family meeting with his parents on 07/06/2019, for which he wrote a 3 page letter for his parents to read. He let them know that part of his difficulty stems from watching their poor communication over the years, which they described as father being harsh and emotionally abusive to his mother, who then shuts down. His father was described as angry, and mother passive-aggressive. The patient was hard on himself and shared that he does not like to be the focus of anything negative. He expressed thankfulness for parents visiting him and assistance in figuring out his college loans. He expressed that he struggles to own his own part of issues as he does not like to acknowledge that he has needs or ask for help. There was some discussion of each person accepting responsibility for their own issues. Safety concerns were discussed, and confirmed he has no guns at school, and guns at home are secured and the patient does not have access. Social work assisted him in referrals for outpatient treatment, with bridge appointments at [facility] while awaiting intake for services in the community. Day of Discharge Assessment Staff report the patient has been attending and participating in groups and therapy, and reporting that despite his initial reaction to hospitalization, treatment has been helpful. He has been interacting appropriately with staff and peers, taking medications as prescribed, eating and sleeping well, and performing ADLs independently. He has expressed some inpatients to staff, wanting to be discharged to return to school and his activities ([employer] is this weekend, and he is involved). On my assessment, he states that mood is "really good actually," and although he was "really pissed off" when he was initially hospitalized, it has been "a lot better than I expected." He states that he struggles with anger in general, and was also very angry about being hospitalized and feeling nobody told him what it would be like. Despite that, he thinks treatment has been helpful, and feels he now has a plan of how to address his depression and other struggles moving forward. He states the most helpful part of treatment was the family meeting with his parents, and it went much better than he expected. He says he now understands that he needs to "start paying more attention to myself and asking for help, that is hard for me." He has set some goals, including working on frustration tolerance, noting that he has "a very thin threshold for frustration," which causes problems for him. He denies thoughts of suicide, plan or intent to harm himself; although he reports chronic episodes of thinking that life is not worth living, he denies acute safety concerns. He reports many protective factors, including his plans for the future, relationships with family and friends, and hope that he will get better. Transition of Care Transition Of Care Record: was reviewed with the patient Advance Directives Advance Directives Information Provided: Yes Advance Directives: No Mental Health Advance Directive: No Advance Directives on File: No Living Will: No Power of Ophthalmic Technician Apprentice: No Advance Directives Reason:: Declines as Mental Health Visit. Risk Factors Assessment Risk factors were mitigated by admission to the inpatient unit, use of medications to target depressive symptoms, education about his diagnoses and the treatment recommendations, family meeting with his parents, addressing his psychosocial stressors, and referring him for outpatient care with bridge appointments at [facility]. He has endorsed improvement in mood symptoms and suicidal thoughts, has been able to identify healthy coping skills and completed discharge safety plan, is tolerating medications well and taking them as prescribed, has been an active participant in treatment, is eating and sleeping well and tending to his ADLs independently, and has been in good behavioral control without self-injurious behavior or aggression. He is requesting dis charge, and as he is no longer at acute risk of harm to himself, can be managed as an outpatient at this time. Male: Yes : Yes Do You Have Access To A Gun?: No Health Problems: No Mental Health Diagnoses: Yes Substance Use Disorders: Yes Previous Attempt: No Previous Psychiatric Hospitalization: No Hopelessness: Yes Smoker: No Protective Factors Assessment Holiness Beliefs: No : No Responsible for Young Children: No Employed: No Stable Relationships: Yes Supportive Family: Yes Tobacco Cessation at Discharge Tobacco Cessation Medication Prescribed at Discharge: Not Applicable/Non-Smoker Total Time Total Time Spent: Greater Than 30 Minutes Discharge Data Lab Results 07/04/19 07/04/19 07/04/19 19:10 19:10 19:10 WBC RBC Hgb Hct MCV MCH MCHC RDW Std Deviation RDW Coeff of Perla Plt Count MPV Immature Gran % (Auto) Neut % (Auto) Lymph % (Auto) [place] % (Auto) Eos % (Auto) Baso % (Auto) Immature Gran # (Auto) Neut # (Auto) Lymph # (Auto) [place] # (Auto) Eos # (Auto) Baso # (Auto) Sodium Potassium Chloride Carbon Dioxide Anion Gap BUN Creatinine Est Cr Clr Drug Dosing Est GFR ( Amer) Est GFR (Non-Af Amer) BUN/Creatinine Ratio Glucose Calcium Total Bilirubin AST ALT Alkaline Phosphatase Total Protein Albumin Globulin Albumin/Globulin Ratio TSH Urine Color Dark Yellow Urine Appearance Clear Urine pH 5.0 Ur Specific [place] 1.027 Urine Protein Negative Urine Glucose (UA) Negative Urine Ketones 3+ H Urine Blood Negative Urine Nitrite Negative Urine Bilirubin Negative Urine Urobilinogen Negative Ur Leukocyte Esterase Negative Salicylates Urine Opiates Screen Neg Ur Methadone, Qual Neg Acetaminophen Urine Barbiturates Neg Ur Phencyclidine (PCP) Neg U Amphetamin/Meth Scrn Neg MDMA (Ecstasy) Screen Neg U Benzodiazepines Scrn Neg Ur Cocaine Metabolite Neg U Marijuana (THC) Screen Pos H U Marijuana THC Carboxy 197 H Drug Screen Comment SEE NOTE Ethyl Alcohol mg/dL 07/04/19 07/04/19 07/04/19 19:36 19:36 19:36 WBC 8.66 RBC 5.57 Hgb 17.4 Hct 49.4 MCV 88.7 MCH 31.2 MCHC 35.2 RDW Std Deviation 43.7 RDW Coeff of Perla 13.4 Plt Count 248 MPV 9.9 Immature Gran % (Auto) 0.2 Neut % (Auto) 68.1 Lymph % (Auto) 21.5 [place] % (Auto) 9.1 Eos % (Auto) 0.9 Baso % (Auto) 0.2 Immature Gran # (Auto) 0.02 Neut # (Auto) 5.89 Lymph # (Auto) 1.86 [place] # (Auto) 0.79 H Eos # (Auto) 0.08 Baso # (Auto) 0.02 Sodium 136 Potassium 3.5 Chloride 103 Carbon Dioxide 25 Anion Gap 8.0 BUN 12 Creatinine 1.07 Est Cr Clr Drug Dosing 136.2 Est GFR ( Amer) 116.0 Est GFR (Non-Af Amer) 100.1 BUN/Creatinine Ratio 11.3 Glucose 97 Calcium 9.9 Total Bilirubin 0.7 AST 14 L ALT 18 Alkaline Phosphatase 65 Total Protein 8.8 H Albumin 4.8 Globulin 4.0 Albumin/Globulin Ratio 1.2 TSH 0.718 Urine Color Urine Appearance Urine pH Ur Specific [place] Urine Protein Urine Glucose (UA) Urine Ketones Urine Blood Urine Nitrite Urine Bilirubin Urine Urobilinogen Ur Leukocyte Esterase Salicylates < 1.7 L Urine Opiates Screen Ur Methadone, Qual Acetaminophen < 2 L Urine Barbiturates Ur Phencyclidine (PCP) U Amphetamin/Meth Scrn MDMA (Ecstasy) Screen U Benzodiazepines Scrn Ur Cocaine Metabolite U Marijuana (THC) Screen U Marijuana THC Carboxy Drug Screen Comment Ethyl Alcohol mg/dL 07/04/19 19:36 WBC RBC Hgb Hct MCV MCH MCHC RDW Std Deviation RDW Coeff of Perla Plt Count MPV Immature Gran % (Auto) Neut % (Auto) Lymph % (Auto) [place] % (Auto) Eos % (Auto) Baso % (Auto) Immature Gran # (Auto) Neut # (Auto) Lymph # (Auto) [place] # (Auto) Eos # (Auto) Baso # (Auto) Sodium Potassium Chloride Carbon Dioxide Anion Gap BUN Creatinine Est Cr Clr Drug Dosing Est GFR ( Amer) Est GFR (Non-Af Amer) BUN/Creatinine Ratio Glucose Calcium Total Bilirubin AST ALT Alkaline Phosphatase Total Protein Albumin Globulin Albumin/Globulin Ratio TSH Urine Color Urine Appearance Urine pH Ur Specific [place] Urine Protein Urine Glucose (UA) Urine Ketones Urine Blood Urine Nitrite Urine Bilirubin Urine Urobilinogen Ur Leukocyte Esterase Salicylates Urine Opiates Screen Ur Methadone, Qual Acetaminophen Urine Barbiturates Ur Phencyclidine (PCP) U Amphetamin/Meth Scrn MDMA (Ecstasy) Screen U Benzodiazepines Scrn Ur Cocaine Metabolite U Marijuana (THC) Screen U Marijuana THC Carboxy Drug Screen Comment Ethyl Alcohol mg/dL < 3.0 Hospital Course (1) Suicidal ideations: 07/05 - Admitted to a locked inpatient behavioral health unit, on q15 minute safety checks - Encourage medication initiation/adjustments as indicated - Encourage participation in group and recreational therapies - Gather collateral information from outpatient providers - Suggest family meeting to involve outpatient supports in safety planning - Arrange appropriate aftercare 07/06 - Pt does endorse ongoing SI, stating he continues "this would be a lot easier if I didn't have to go though it" - admitting that these thoughts lead to specific thoughts to end his life - Family meeting today to discuss safety and discharge planning 07/07 -The patient reports fleeting, passive thoughts of suicide without any active plan or intent. He says that his mood is improved and he feels that he has learned several coping strategies here in the hospital. -At the same time, when asked to describe a safety plan that he might employ in the community should he develop suicidal plan and intent, he stumbles and says, "I do not want to lay that kind of thing on friends and family." Reprocess this, and looked at the fact that his suicide would definitely be "laying" something on his friends and family, and that I felt certain that his friends and family would be eager to help him in those instances. He then discussed the option of informing his girlfriend ("since she already knows that I have suicidal thoughts. She has visited me here.") And, probably before contacting his girlfriend he says that he would contact his mother as a way of preventing suicidal action. -Patient tells me that there are guns in his family home, but these are locked in a cabinet and, primarily because of the patient's sisters behaviors, their father has hidden the alarcon to the gun cabinet and although the patient does look forward (reportedly out of curiosity, but not out of a plan to shoot himself) he has never been able to find it. (2) Depression: 07/05 - Will use working diagnosis of major depressive disorder. Differential includes: dysthymic disorder, adjustment disorder, cannabis-induced mood disorder, bipolar disorder, and underlying personality disorder. - Pt agreeable with cross-taper from escitalopram to sertraline - as he has felt escitalopram to be less effective over the past several months. Risks, benefits, and potential side effects of the medication change were discussed. Pt verbalized understanding and is agreeable with initiation of sertraline. Will provide 10mg of escitalopram and 50mg of sertraline for tomorrow morning - as he has already received 20mg of escitalopram this morning. - Encourage attendance of group and recreational programming in order to develop healthy and effective coping strategies - Refer for outpatient therapy and psychiatric medication management - Family meeting with parents to discuss safety and discharge planning - Rule out underlying personality disorder: characteristics of borderline personality disorder (affective instability, inappropriate/intense anger, chronic SI/emptiness, regular suspiciousness of others, and instability within relationships). Evaluate further for possible narcissistic and antisocial traits as well. Family history of chaos with interpersonal relationships, sis ter with reported borderline personality disorder. - Encourage processing of these thoughts and emotions while maintaining appropriate boundaries - Recommending consistent outpatient CBT, ideally ability to explore DBT as well 07/06 - Discontinue escitalopram and titrate sertraline to 100mg tomorrow - patient agreeable with plan and is denying side effects - Continue to encourage group and recreational programming - Family meeting with parents is scheduled for this afternoon - Continue referrals for outpatient psychiatric treatment 07/07 -We are continuing discharge planning. -Patient indicates that he is tolerating sertraline 100 mg daily well and we will increase the dose to 150 mg starting tomorrow. -The patient does present with certain pathologic characterologic traits, but it is not clear that these traits arise to the level of an actual personality disorder. 07/08 -Discharge to home. Bridge appointment scheduled at [facility], and has been referred to [facility] for ongoing treatment in the community. (3) Anxiety: 07/05 - Symptoms of anxiety seem to be consistent with a diagnosis of generalized anxiety disorder, with reported panic attacks - Cross-taper from escitalopram to sertraline as discussed above - Hydroxyzine available prn for acute anxiety - Encourage development of healthy and effective coping strategies in group therapy 07/06 - Switching SSRIs as above - will d/c escitalopram and titrate sertraline to 100mg for tomorrow - Continue prn hydroxyzine - Pt has been participating more openly in group programming 07/07 -Today the patient reports that his anxiety has lessened, and he indicates that participation in various group programming has helped him develop certain skills that have helped him "learn to relax." (4) Cannabis abuse: -Brief intervention was offered and accepted Intervention was greater than 5 min in length. Brief interventions include: 1. Assess Readiness to Quit, 2. Advise: Help Patient to Reduce or Abstain from Alcohol and other abusable substances, 3. Agree: Set Specific, Feasible Goals, 4. Assist: Anticipate barriers, Problem- Solving Solutions. Social work to 5. Arrange: Referrals to appropriate treatment. Summary of intervention: The patient is in precontemplation stage with regards to transtheoretical model of change. The patient is advised to decrease alcohol consumption and substance use due to depressant and mood altering effects and risk of interactions with prescription medications. The patient was advised of recommendations for abstinence from alcohol and other abusable substances and to attend substance abuse treatment at discharge, and will be provided with recovery materials to continue to education self on how to cope with their condition without drinking and marijuana use. 07/07 -Today, the patient tells me that he is not a "regular" user of marijuana, shortly after having told me that he uses marijuana, often throughout the day, on a daily basis. (He was able to recognize that the nonsensical nature of that statement, once it was pointed out to him.) He says that he smokes at least 3 "bowls" of marijuana on a daily basis, and sometimes more. He uses a "bong" primarily. The patient notes that, lately, he has not been experiencing much pleasure relief from marijuana and notes that he had stopped using it approximately 5 days prior to the admission. Mental Health & Subst Abuse Tx Psychiatrist Name of Psychiatrist: Rafaela Trevino Psychiatrist's Date of Appointment with Psychiatrist: 08/08/19 Time of Appointment with Psychiatrist: 1:00 pm Psychiatric Appointment Comment: [address], [place] Therapist Name of Therapist: GLADIS Caraballo Therapist's Date of Therapist Appointment: 07/11/19 Time of Therapist Appointment: 1:00 p.m. Therapy Appointment Comment: [facility], 5th Floor (will see you short term) Financial Planning Adviser Name of Financial Planning Adviser: Noe Mccoy and [place] - Nafisa Phone Number for Financial Planning Adviser: [phone] Date of Appointment with Financial Planning Adviser: 07/13/19 Time of Appointment with Financial Planning Adviser: 10:00 a.m. Case Management Appointment Comment: [address] [place] [address] Post Discharge Appointments Primary Care Physician Name Of Family Doctor: [facility] Primary Care Time of Appointment with PCP: Please follow up as needed Provider Appointment Comment: [place] [address] Smoking Cessation Counseling Tobacco Cessation Medication Prescribed at Discharge: Not Applicable/Non-Smoker Contact Information Discharge Discharge Address: [address] [place] [id number] Discharge Plan Discharge Items Patient Disposition: Home - Self-Care Reason For Visit: MDD SINGLE EPISODE, SEVERE Discharge Diagnosis: Major depressive disorder, single episode Activity: Per Instructions section Non-emergency contact: Primary Care Provider, Psychiatrist and Therapist Call non-emergency contact if: you have any medication questions and your symptoms worsen Follow-up/Referrals: [facility] [Primary Care Provider] - Diet: Regular Addtl Attending Provider Instructions: SPECIAL CARE INSTRUCTIONS: 1. Follow through with your scheduled aftercare appointments. If unable to keep an appointment, please call to reschedule. 2. Take your medication only as prescribed. Medication should not be changed or stopped without the approval of your doctor. In the event of worsening symptoms or concerns about side effects, contact your doctor immediately. 3. Utilize new healthy coping skills, anger management skills, and stress management skills learned during your hospitalization. Journal feelings and process them with a support person. Identify stressors or situations that may result in relapse, deterioration or inappropriate behaviors and develop a plan to deal with those issues. 4. If your coping skills are ineffective and you are in crisis, contact your outpatient providers for direction. If unable to reach your providers, please call [facility] HELP LINE AT or go to the closest Emergency Room. 5. Avoid alcohol and un-prescribed drugs. 6. You have been provided with the Mental Health Advance Directives Pamphlet for your review. AFTERCARE APPOINTMENTS: * Please call your insurance company prior to your scheduled appointment to confirm your aftercare providers are covered. Take your insurance information to your appointments. WHO TO CALL AND WHEN: Medical Emergencies: For questions or emergencies related to your hospital stay, please contact the Inpatient Behavioral Health Unit at [phone]. A pig machine supervisor is on-call 07/12 for the Behavioral Health Unit for emergencies At any time you feel your situation is an emergency, you may also call 911 immediately. Your Doctors Instructions noted above were prepared by provider Berta Goldstein MD. Pending Studies at Discharge: No Stand-Alone Forms: [facility] [employer], Smoking Cessation, Suicide Prevention Resources Medications and DC Order Prescriptions: New sertraline 100 mg tablet 150 mg PO QAM Qty: 45 RF: 0 Continued naproxen sodium [Aleve] 220 mg Tablet 220 mg PO Q8H PRN (Reason: Fever Or Pain) RF: 0 Discontinued escitalopram oxalate 10 mg Tablet 20 mg PO QAM RF: 0 Discharge Orders: Discharge Order (Routine); Ordered 07/08/19 Ordered By: Berta Goldstein Admission Data Admit Date/Time: 07/05/19 00:25 Attending Provider: Berta Goldstein Admit Provider: Michael Duff Primary Care Provider: [facility] Other Interventions: PSY Interdisciplinary Discharge Planning Last Done: 07/07/19 14:08 Coding Level of Care Code 00390 D/C day mgmt > 30 min Diagnoses Suicidal ideations R45.851 Depression F33.2 Active/Remission status: currently active Depression Type: major depressive disorder Major depression episode severity: severe Major depression recurrence: recurrent Psychotic features: without psychotic features Anxiety F41.9 Cannabis abuse F12.10
== END 2019-07-08 12:03 | disposition home or self-care (01) | DRG 885 ==
LOC: ED 18:40 → 3S 07-05 00:25